=== PATIENT | female | born 1985 | race Caucasian/White ===

== ENCOUNTER 2017-07-08 15:43 | Emergency (ER) | payer MEDICAID ==
[2017-07-08] MEDS ORDERED: diPHENhydraMINE IV* 50 MG/ML 1 ml VIAL (BENADRYL) IM ONE (16:15)
[2017-07-08 16:54] LABS: Hematocrit 40 % (35-47); Hemoglobin 13.3 g/dl (12.0-16.0); Mean Corpuscular HGB Conc 33 g/dl (31-36); Mean Corpuscular Hemoglobin 29 pg (27-31); Mean Corpuscular Volume 88 fL (80-97); Mean Platelet Volume 9 um3 (7.4-10.4); Red Blood Count 4.54 10^6/ul (4.0-5.4); Red Cell Distribution Width 13 % (10.5-15); White Blood Count 6.6 10^3/ul (3.5-10.8)
[2017-07-08 17:08] LABS: ALT 28 U/L (7-52); AST 27 U/L (13-39); Albumin 4.1 g/dL (3.2-5.2); Alkaline Phosphatase 34 U/L (34-104); Anion Gap 5 mmol/L (2-11); BUN/Creatinine Ratio 16.4 (8-20); Blood Urea Nitrogen 11 mg/dL (6-24); CO2 Carbon Dioxide 27 mmol/L (22-32); Calcium 9.3 mg/dL (8.6-10.3); Chloride 104 mmol/L (101-111); EGFR African American 132.9 (>60); EGFR Non-African American 103.3 (>60); Globulin 2.9 g/dL (2-4); Glucose 92 mg/dL (70-100); Potassium 3.5 mmol/L (3.5-5.0); Sodium 136 mmol/L (133-145)
[2017-07-08 17:44] LABS: Acetaminophen < 15 mcg/mL; Alcohol < 10 mg/dL (<10); Salicylate < 2.50 mg/dL (<30)
[2017-07-08 17:59] LABS: TSH (Thyroid Stimulating Horm) 2.47 mcIU/mL (0.34-5.60)
[2017-07-08 20:28] LABS: Creatine Kinase 79 U/L (10-223)
--- NOTE | 2017-07-08 20:48 | ED ---
Alison Carrillo SooYoung, scribed for Julio Mathis MD on 07/08/17 at 1600 . Psychiatric Complaint - HPI Summary HPI Summary: A 31 y/o F with autism presents to ED for MHE. Pt was last seen at [facility] ED one week ago. She has had a recent medication change: reduction of Seroquel; and per caregivers, she has not been the same since. Associated sx: tardive dyskinesia, biting, aggressiveness. Per mother, pt has also been complaining of abd pain, decreased oral intake, vomiting. Mom states pt's behavior was improved when she was on Benadryl. Mother also notes that pt had the flu last week. Pt's psychiatrist recommended she come to [facility] for evaluation. PMHx: Autism, bipolar disorder. Allergic to penicillin. No ETOH, tobacco. Cholecystectomy last year. - History Of Current Complaint Chief Complaint: EDMentalHealth Time Seen by Provider: 07/08/17 15:53 Hx Obtained From: Patient, Family/Tank Furnace Operator - mother, caregivers from residence Onset/Duration: Still Present Timing: Constant - Allergies/Home Medications Allergies/Adverse Reactions: Allergies Allergy/AdvReac Type Severity Reaction Status Date / Time Penicillins Allergy Rash Verified 07/08/17 15:50 Home Medications: Home Medications Atorvastatin* [Lipitor 20 MG*] 20 mg PO DAILY 07/08/17 [History Confirmed ] FLUoxetine CAP* [PROzac CAP*] 20 mg PO DAILY 07/08/17 [History Confirmed ] Fenofibrate 150 mg PO BEDTIME 07/08/17 [History Confirmed 07/08/17] Levonorgestrel-Ethinyl Estradi [Ashlyna 0.15-0.03 &0.01 mg] 1 tab PO DAILY 07/08 [History Confirmed 07/08/17] Loratadine 10 mg PO DAILY 07/08/17 [History Confirmed 07/08/17] Naltrexone (NF) 50 mg PO BEDTIME 07/08/17 [History Confirmed 07/08/17] Omeprazole CAP* [Prilosec CAP* 20 MG] 20 mg PO BID 07/08/17 [History Confirmed 07/08/17] QUEtiapine TAB* [SEROquel TAB*] 200 mg PO BEDTIME 07/08/17 [History Confirmed ] Sennosides-Docusate Sodium [Senna-S 8.6-50 mg] 2 tab PO BEDTIME 07/08/17 [ History Confirmed 07/08/17] Triamcinolone NASAL SPRAY* [Nasacort AQ Nasal [place]*] 2 puff NASAL BEDTIME 07/08 [History Confirmed 07/08/17] buPROPion SR TAB* [Wellbutrin SR TAB*] 150 mg PO QAM 07/08/17 [History Confirmed 07/08/17] busPIRone TAB* [Buspar *] 30 mg PO BEDTIME 07/08/17 [History Confirmed 07/08/17] busPIRone TAB* [Buspar TAB *] 15 mg PO QAM 07/08/17 [History Confirmed 07/08/17] clonazePAM TAB(*) [KlonoPIN TAB(*)] 0.25 mg PO BEDTIME 07/08/17 [History Confirmed 07/08/17] metFORMIN* [Glucophage 500 MG TAB *] 500 mg PO BID 07/08/17 [History Confirmed 07/08/17] PMH/Surg Hx/FS Hx/Imm Hx Previously Healthy: No Endocrine/Hematology History: Denies: Hx Diabetes Psychiatric History: Reports: Hx Autism, Hx Bipolar Disorder Infectious Disease History: No Infectious Disease History: Denies: Traveled Outside the [place] in Last 30 Days - Family History Known Family History: Negative: Cardiac Disease, Hypertension, Diabetes - Social History Occupation: Disabled Lives: Assisted Living Alcohol Use: None Hx Substance Use: No Hx Tobacco Use: No Review of Systems Negative: Fever Positive: Abdominal Pain, Vomiting, Other - pos: decreased oral intake Neurological: Other - tardive dyskinesia, biting Psychological: Other - pos: aggressiveness All Other Systems Reviewed And Are Negative: Yes Physical Exam Triage Information Reviewed: Yes Vital Signs On Initial Exam: Initial Vitals Temp Pulse Resp BP Pulse Ox 98.1 F 90 18 140/82 97 07/08/17 15:46 07/08/17 15:46 07/08/17 15:46 07/08/17 15:46 07/08/17 15:46 Vital Signs Reviewed: Yes Skin: Positive: Warm, Skin Color Reflects Adequate Perfusion Head/Face: Positive: Normal Head/Face Inspection Eyes: Positive: EOMI ENT: Positive: Normal ENT inspection Neck: Positive: Supple, Nontender Respiratory/Lung Sounds: Positive: Clear to Auscultation, Breath Sounds Present Cardiovascular: Positive: RRR. Negative: Murmur Abdomen Description: Positive: Nontender Musculoskeletal: Positive: Strength/ROM Intact Neurological: Positive: Sensory/Motor Intact, CN Intact II-III, Other - the patient is making repetative lip smacking motions, and turning head. She appears wrestless in the bed with akisthesia. Psychiatric: Positive: Anxious Diagnostics - Vital Signs Vital Signs Temp Pulse Resp BP Pulse Ox 07/08/17 15:46 98.1 F 90 18 140/82 97 - Laboratory Result Diagrams: 07/08/17 16:42 07/08/17 16:42 Lab Statement: Any lab studies that have been ordered have been reviewed, and results considered in the medical decision making process. - EKG 1646 Cardiac Rate: NL EKG Rhythm: Sinus Rhythm - 80bpm ST Segment: Normal EKG Interpretation: nml IN, QRS 107, no STEMI Re-Evaluation - Re-Evaluation 1 Re-Evaluation Time: 17:41 Change: Improved Comment: Pt is much better after receiving Benadryl. 2 Re-Evaluation Time: 19:00 Change: Improved Comment: Pt appears comfortable. She is not agitated. She ate a full dinner tray. Course/Dx - Course Course Of Treatment: A 31 y/o F with autism presents to ED for MHE. Pt was last seen at [facility] ED one week ago. She has had a recent medication change: reduction of Seroquel; and per caregivers, she has not been the same since. Associated sx: tardive dyskinesia, biting, aggressiveness. Per mother, pt has also been complaining of abd pain, decreased oral intake, vomiting. Mom states pt's behavior was improved when she was on Benadryl. Mother also notes that pt had the flu last week. Pt's psychiatrist recommended she come to [facility] for evaluation. PMHx: Autism, bipolar disorder. Allergic to penicillin. No ETOH, tobacco. Cholecystectomy last year. The hospitalist Dr Chapito Coleman consulted from medicine on the patient. he does not feel there is any medical issue to admit the patient for. He feels her issues are her psychiatry issues. This was relayed to psychiatry at 2030. psychiatry recommended the patient get her bedtime seroquel and buspar and they will be seeing her in the AM for medication recommendation/consult - Differential Dx/Clinical Impression Provider Diagnosis: Dystonic drug reaction, Autism - Physician Notifications Discussed Care Of Patient With: Chapito Coleman - Hospitalist Time Discussed With Above Provider: 18:49 Instructed by Provider To: MD Will See In ED Discharge - Discharge Plan Condition: Good Disposition: OTHER Discharge Disposition Comment: Signed out to Dr Saenz awaiting the psychiatrist to see 2200 and dispositio Referrals: Non Staff,Doctor [Primary Care Provider] - The documentation as recorded by the Alison mariscal SooYoung accurately reflects the service I personally performed and the decisions made by me, Julio Mathis MD.
[2017-07-08 20:56] VITALS: BP 147/87
[2017-07-08] MEDS ORDERED: busPIRone TAB* 30 MG PO ONE (21:00)
[2017-07-08] MEDS ORDERED: QUEtiapine TAB* 100 MG PO ONE (21:00)
[2017-07-08] MEDS ORDERED: diPHENhydraMINE PO* 25 MG PO SCH (21:00)
[2017-07-08 22:47] LABS: Benzodiazepine Urine Screen None Detected (None Detect)
[2017-07-08 22:54] LABS: Urine Bacteria 1+ (Absent); Urine Bilirubin Negative (Negative); Urine Glucose Negative (Negative); Urine Nitrite Negative (Negative)
--- NOTE | 2017-07-09 02:29 | CONS ---
CONSULTATION REPORT: DATE OF CONSULT: 07/08/17 - EMERGENCY DEPT CONSULTING PROVIDER: Chapito Coleman MD HISTORY OF PRESENT ILLNESS: Gela Allen is a 31-year-old female with PMH of autism, bipolar disorder with depressive features, and developmental delay. She seems to speak in 1-word phrases and knows some sign language at baseline. The patient's psychiatrist is Dr. Mcgraw, followed for approximately 15 years and who referred the patient to the [facility] emergency room for a psychiatric opinion given recent events. The patient was recently diagnosed with influenza on 06/28/17, 10 days prior to this presentation. She is a resident of the [facility] an [facility] that helps autistic patients achieve some level of independence. At her baseline she reportedly occasionally bites herself, hits herself on the forehead, and can on occasion slap others if they get too close to her personal space when she is agitated and she has some sent some RN's for emergency room evaluation given these slaps in the past. She also has baseline tics on occasion. Of note, this history is provided by her mother Estee, a nurse from the [facility], Kimberlee Brady, and a community mental health social worker Jasmyne Nur, as well as her father. One week ago she reportedly developed some new symptoms of concern and that she was crossing her eyes for several seconds at a time and seemed to be less responsive during these events. Second hand reports from the [facility] was that one of these episodes may have lasted up to 20 minutes. There was another report that her right arm "went limp and then started tapping 3 times." This happened on , 7 days prior to this presentation and she was taken to [facility] Emergency Department, got some blood work done. Family was told "that her Seroquel dosing may have been too high." She got a shot in the thigh and some Benadryl and was sent home with suggestion to reduce the Seroquel dosing. Family called Dr. Mcgraw the next day on Wednesday, who recommended stopping the Benadryl that had been recommended. The patient was then followed up with Dr. Mcgraw on 07/05/17 and a plan was initiated to start Klonopin and to taper her Seroquel from her original 600 mg total daily (400 at night and 200 in the a.m.) to a plan with Seroquel 200 mg daily for 7 days, then 100 mg daily for 7 days, then stop with last dose on 07/18/17. The patient reportedly has been increasingly agitated and the night prior to this presentation was so agitated that 911 was called to the [facility]. There have also been reports of the patient having some high-pitched yells, and occasionally itching. The patient presents to [facility] ED on recommendation of Dr. Mcgraw as she reportedly is not sure if she made the right choice tapering down the Seroquel and wanted a second opinion. However, Dr. Mcgraw was in [place] the day of admission and not near [facility] and therefore, the patient was directed to [facility]. Of note, it does not seem like Dr. Celestin or other psychiatrists at [facility] had direct conversations with Dr. Mcgraw before the patient's family was on their way here and preliminary psychiatric evaluation notes indicate that there is a skepticism about whether or not this would be an appropriate admission to their service. Note the patient was on Abilify in November 2016 and that was stopped and switched to current dosing of Seroquel, although reportedly the patient had been on Seroquel in the past and up to 1000 mg daily back in 2009. Upon presentation to the emergency room, the patient had lab work done including a CBC, a CMP, and some preliminary toxicology reports, TSH, all of which was unremarkable. The patient's vital signs were also unremarkable; temperature 98.1, heart rate 90, respiratory rate 18, satting 97% on room air, and blood pressure 140/82. Dr. Mathis, emergency room physician, has consulted medicine service for question of whether or not the patient has a medical need for admission given the uncertainty surrounding whether or not psychiatric services will be admitting the patient. PAST MEDICAL HISTORY: Autism, bipolar disorder with depressive features, and developmental delay (can speak in 1 or 2 word phrases). CURRENT MEDICATIONS: Include: 1. Ashlyna 0.15-0.03-0.01 mg, 1 tablet daily at bedtime. 2. Atorvastatin 20 mg daily. 3. Bupropion HCL sustained release 150 mg daily at 8 a.m. 4. Buspirone HCL 50 mg one tablet b.i.d. in a.m. and p.m. 5. Clonazepam 0.5 mg one-half tablet daily at 8 p.m. for 7 days with plan to switch to 0.25 mg b.i.d. on 07/12/17. 6. Fenofibrate 145 mg daily. 7. Duloxetine HCL 20 mg q.a.m. 8. Loratadine 10 mg q.a.m. 9. Metformin 500 mg b.i.d. 10. Naltrexone 50 mg q.p.m. 11. Nasacort Allergy 24-hour spray, 2 puffs each nostril once daily at [address] 20 mg one capsule b.i.d. 13. Quetiapine fumarate 200 mg for 7 days, then 100 mg for 7 days, and stop on 07/18/17. Of note, previous dosing had been 400 mg in p.m. and 200 mg in the a.m. since November 2016. 14. Senna 2 tablets daily. 15. Acetaminophen 325 mg tablets, take 2 tablets q.4 hours p.r.n. pain or fevers. 16. Zofran 4 mg p.r.n. every 8 hours for nausea. 17. Pamprin Maximum Cramp 1 tablet every 6 hours as needed for menstrual cramping. ALLERGIES: PENICILLIN with reported rash. FAMILY HISTORY: Noncontributory. SOCIAL HISTORY: The patient lives in [facility]. Medical surrogate is mother, Estee. No other substance abuse history. Nonsmoker and nondrinker. REVIEW OF SYSTEMS: The patient is unable to contribute to review of systems. PHYSICAL EXAM: The patient is in no acute distress, lying in bed in a darken room, occasionally crossing her eyes. HEENT: Normocephalic and atraumatic. Pupils equally round and reactive to light. Extraocular motions seemingly intact, though the patient is not always following commands. Neck: Supple. Pulmonary: Clear to auscultation with no wheezes, rales, or rhonchi. Cardiovascular: Regular rate and rhythm. No murmurs, rubs, or gallops. Abdomen: Soft, nontender, and nondistended. No peritoneal signs. No guarding or rebound. Extremities: Warm and well perfused. No peripheral edema. Neurologic: Somewhat limited by the patient's understanding and cooperation. Manager Baby strength 5/5 bilaterally. Hip flexion 5/5 bilaterally. Cranial nerves II through XII intact. The patient oriented to name only, difficult to understand , but does attempt some sign language communication. DIAGNOSTIC STUDIES/LAB DATA: White count 6.6, hemoglobin 13.3, hematocrit 40, platelets 290,000. Sodium 136, potassium 3.5, chloride 104, carbon dioxide 27, BUN 11, creatinine 0.67. AST 27, ALT 28, creatine kinase 79, alk phos 34, TSH 247, total bilirubin 0.40. Salicylate now less than 2.50. Acetaminophen less than 15, and serum alcohol less than 10. EKG demonstrated normal sinus rhythm, heart rate 80s, QTC 461, poor R-wave progression, evidence of left ventricular hypertrophy, T-wave inversion in V1. Imaging; none obtained in the emergency room. ASSESSMENT AND PLAN: Gela Allen is a 31-year-old female with a past medical history of autism, developmental delay, bipolar disorder with depressive features on several psychiatric medications for at least a decade, being followed by Dr. Mcgraw who unfortunately was not able to see the patient as an outpatient due to her away work schedule today and was referred to [facility] for further titration and evaluation of her psychiatric medications. The patient likely suffered from a bit of a setback in the setting of influenza infection 10 days prior to this admission and may have been the cause for some of her new symptomatology last week. I would favor restarting her Seroquel given the increase in the agitation that seems to be accompanying the titration down of this medication. However, these decisions are really best made by psychiatric service and especially the patient's home psychiatrist, Dr. Mcgraw, in close consultation with Dr. Celestin if the patient is ultimately admitted to the psychiatric service. The patient does not have a clear indication for admission to the medicine service with no lab or physical abnormalities to support such an admission. Would get a urinalysis to rule out infection given some slight CVA tenderness on exam today, although the patient is afebrile. We would recommend the patient be admitted to psychiatric service or even more likely to be useful, have close outpatient psychiatric titration of these numerous medications that have taken years to get the right combinations on. The patient does not seem to be having any clear tics or chorea-like movements on exam today. She does not have increased muscle tone or symptoms such as ocular clonus or induced clonus concerning for serotonin syndrome. At the moment, she is afebrile and again there does not seem be a specific indication to admit her to the medicine service. We appreciate this consultation. [id number]/[facility] #: [id number] MARY
--- NOTE | 2017-07-09 06:37 | ED ---
Irina Carrillo Alfonso, scribed for Valdez Saenz MD on 07/09/17 at 0635 . Progress - Progress Note Progress Note: This patient was signed out from Dr. Mathis, pending disposition, awaiting MHE. Patient has been stable during my care in the ED course. The patients condition is stable they will be signed out at shift change to Dr. Avitia. - Consult/PCP Time Called: 18:06 Course/Dx - Diagnoses Provider Diagnoses: Dystonic drug reaction, Autism The documentation as recorded by the Irina mariscal Alfonso accurately reflects the service I personally performed and the decisions made by me, Valdez Saenz MD.
[2017-07-09] MEDS ORDERED: metFORMIN* 500 MG TAB PO ONE (10:15)
[2017-07-09] MEDS ORDERED: Atorvastatin* 20 MG TAB PO ONE (10:15)
[2017-07-09] MEDS ORDERED: LoraTADine TAB(NF) 10 MG TAB (AUTOSUB to CETIRIZINE) PO ONE (10:15)
[2017-07-09] MEDS ORDERED: FLUoxetine CAP* 20 MG PO ONE (10:15)
[2017-07-09] MEDS ORDERED: Omeprazole CAP* 20 MG PO ONE (10:15)
[2017-07-09] MEDS ORDERED: buPROPion SR TAB.SR* 150 MG PO ONE (10:15)
--- NOTE | 2017-07-09 11:17 | PN ---
ED Flex Patient Progress Note Subjective: This is a 31 year-old, single, white female with a history of moderate intellectual disability, autism spectrum disorder and mood instability who was sent to the ED from the [facility] in [place], [place], by her doctor, Oksana Mcgraw, due to worsening agitation in the setting of recent reduction in quetiapine dosing. Dr. Mcgraw informed me via the phone, that the patient had been developing movements characteristic of tardive dyskinesia on quetiapine, at the dose of 200mg AM and 400mg PM. This was reduced to 200mg PM and resulted in worsening movement disorder and agitation. Today, I evaluate the patient with her mother, Estee Santos, present. The patient has minimal verbal comprehension and does not participate in the interview process, but is resting comfortably with mild hyperkinesis. Mother disputes the history of choreoathetoid movements, instead describing jerking and increased tone in neck and upper extremities, which is more consistent with dystonia. Mother reports that these involuntary movements were responsive to Benadryl administration. The mother also disputes that the patient was assaultive to others, instead, stating that she had shown some increase in harm to self, but no SI or dangerous behaviors. Mother would like to take the patient home until 07/12, and then return her to the [facility], the senior care where the patient typically resides. 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 2: Add benztropine 0.5mg PO BID to reduce dystonic movements. 3: A 30 day supply of these was called in to [facility] in [place], [place], to be picked up by senior care staff on 07/12. 4: Patient's mother granted a 4-day supply of quetiapine and benztropine as she will be staying at home with her parents until 07/12. 5: Follow up will be with Dr. Oksana Mcgraw at the [facility] in [place], [place]. Vital Signs Temp Pulse Resp BP Pulse Ox 97.5 F 94 16 147/87 100 07/08/17 20:55 07/08/17 20:55 07/08/17 20:55 07/08/17 20:55 07/08/17 20:55 Lab Results - Entire Visit 07/08/17 07/08/17 07/08/17 20:03 20:03 16:42 WBC 6.6 RBC 4.54 Hgb 13.3 Hct 40 MCV 88 MCH 29 MCHC 33 RDW 13 Plt Count 290 MPV 9 Neut % (Auto) 53.5 Lymph % (Auto) 35.1 Polk % (Auto) 9.9 H Eos % (Auto) 0.8 Baso % (Auto) 0.7 Absolute Neuts (auto) 3.5 Absolute Lymphs (auto) 2.3 Absolute Monos (auto) 0.7 Absolute Eos (auto) 0.1 Absolute Basos (auto) 0 Absolute Nucleated RBC 0 Nucleated RBC % 0 Sodium Potassium Chloride Carbon Dioxide Anion Gap BUN Creatinine Est GFR ( Amer) Est GFR (Non-Af Amer) BUN/Creatinine Ratio Glucose Calcium Total Bilirubin AST ALT Alkaline Phosphatase Total Creatine Kinase Total Protein Albumin Globulin Albumin/Globulin Ratio TSH Beta HCG, Quant Urine Color Yellow Urine Appearance Cloudy Urine pH 5.0 Ur Specific [place]varado 1.030 Urine Protein Negative Urine Ketones Negative Urine Blood 1+ H Urine Nitrate Negative Urine Bilirubin Negative Urine Urobilinogen Negative Ur Leukocyte Esterase 2+ H Urine WBC (Auto) 1+(6-10/hpf) H Urine RBC (Auto) 2+(6-10/hpf) H Ur Squamous Epith Cells Present H Urine Bacteria 1+ H Urine Glucose Negative Salicylates Urine Opiates Screen None detected Acetaminophen Ur Barbiturates Screen None detected Ur Phencyclidine Scrn None detected Ur Amphetamines Screen None detected U Benzodiazepines Scrn None detected Urine Cocaine Screen None detected U Cannabinoids Screen None detected Serum Alcohol 07/08/17 16:42 WBC RBC Hgb Hct MCV MCH MCHC RDW Plt Count MPV Neut % (Auto) Lymph % (Auto) Polk % (Auto) Eos % (Auto) Baso % (Auto) Absolute Neuts (auto) Absolute Lymphs (auto) Absolute Monos (auto) Absolute Eos (auto) Absolute Basos (auto) Absolute Nucleated RBC Nucleated RBC % Sodium 136 Potassium 3.5 Chloride 104 Carbon Dioxide 27 Anion Gap 5 BUN 11 Creatinine 0.67 Est GFR ( Amer) 132.9 Est GFR (Non-Af Amer) 103.3 BUN/Creatinine Ratio 16.4 Glucose 92 Calcium 9.3 Total Bilirubin 0.40 AST 27 ALT 28 Alkaline Phosphatase 34 Total Creatine Kinase 79 Total Protein 7.0 Albumin 4.1 Globulin 2.9 Albumin/Globulin Ratio 1.4 TSH 2.47 Beta HCG, Quant < 0.60 Urine Color Urine Appearance Urine pH Ur Specific [place] Urine Protein Urine Ketones Urine Blood Urine Nitrate Urine Bilirubin Urine Urobilinogen Ur Leukocyte Esterase Urine WBC (Auto) Urine RBC (Auto) Ur Squamous Epith Cells Urine Bacteria Urine Glucose Salicylates < 2.50 Urine Opiates Screen Acetaminophen < 15 Ur Barbiturates Screen Ur Phencyclidine Scrn Ur Amphetamines Screen U Benzodiazepines Scrn Urine Cocaine Screen U Cannabinoids Screen Serum Alcohol < 10
== END 2017-07-09 10:15 | disposition home or self-care (01) ==
LOC: ED 15:43
DX: G24.02 Drug induced acute dystonia (principal); F84.0 Autistic disorder; R10.9 Unspecified abdominal pain; R11.10 Vomiting, unspecified
CPT/HCPCS: 36415; 80053; 80307; 80320; 80329; 81003; 81015; 82550; 84443; 84702; 85025; 87086; 93005; 96372; 99285; A9270-GY; G0480; J1200